=== PATIENT | female | born 1950 | race American Indian/Alaskan Native ===

== ENCOUNTER 2017-03-23 11:31 | Outpatient (CLI) | payer OTHER ==
--- NOTE | 2017-03-23 15:05 | Mammography Report ---
Bilateral digital screening mammogram with CAD. Comparison study is dated February 15, 2016. Findings: The breast parenchyma is heterogeneously dense. There are no masses or architectural distortion. There are scattered bilateral monomorphic rounded microcalcifications which appear similar to the previous study. No new groupings or pleomorphism. Impression: Stable benign findings. BI-RADS code: 2. Recommendation: Annual screening.
== END 2017-03-23 11:32 | disposition home or self-care (01) ==
LOC: MAMMO 11:31
PROVIDERS: ATTEND Family Medicine
DX: Z12.31 Encounter for screening mammogram for malignant neoplasm of breast (principal)
CPT/HCPCS: 77067; G0202

== ENCOUNTER 2018-06-17 11:14 | Outpatient (CLI) | payer OTHER ==
--- NOTE | 2018-06-18 08:08 | Mammography Report ---
BILATERAL DIGITAL SCREENING MAMMOGRAM with CAD : 06/17/18 11:14:00 CLINICAL: Routine screening. COMPARISON:03/23/17 and 02/15/16 FINDINGS: The breasts are heterogeneously dense, which may obscure small masses.Stable bilateral upper-outer amorphous calcifications. No mass, architectural distortion or suspicious calcifications. IMPRESSION: No mammographic evidence of malignancy. BI-RADS CATEGORY: 2 -- Benign RECOMMENDATION: Routine mammographic screening in one year. COMMENT: Patient follow-up letters are generated by our [employer] application.
== END 2018-06-17 11:15 | disposition home or self-care (01) ==
LOC: MAMMO 11:14
PROVIDERS: ATTEND Family Medicine
DX: Z12.31 Encounter for screening mammogram for malignant neoplasm of breast (principal)
CPT/HCPCS: 77067